=== PATIENT | female | born 2000 | race Two or more races ===

== ENCOUNTER 2024-05-27 02:25 | Emergency (ER) | payer SELFPAY ==
[~2024-05-27] VITALS: Ht 157.5 cm; Wt 64.0 kg
[2024-05-27 02:35] VITALS: BP 99/61; PULSE 80; RESP 15; O2SAT 95
== END 2024-05-27 03:11 | disposition left against medical advice (07) ==
LOC: ER 02:25
DX: R68.89 Other general symptoms and signs (principal); Z53.21 Procedure and treatment not carried out due to patient leaving prior to being seen by health care provider